=== PATIENT | male | born 1960 | race Caucasian/White ===

== ENCOUNTER 2023-11-07 09:50 | Outpatient (CLI) | payer BC ==
[2023-11-07 10:56] LABS: Hemoglobin 16.7 g/dL (13.5-17.5); Mean Corpuscular HGB CONC 32.7 g/dL (32.0-36.0); Mean Corpuscular Hemoglobin 29.6 pg (27.0-33.0); Mean Corpuscular Volume 90.3 fL (81.2-95.1); Platelet Count 244 10x3/uL (150-450); RBC Distribution Width 13.3 % (11.5-14.5); Red Blood Cell (RBC) Count 5.65 10x6/uL (4.32-5.72)
[2023-11-07 11:15] LABS: INR-International Normal Ratio 1.1; PTT 26.6 sec (22.0-33.0); Prothrombin Time 11.9 sec (9.5-12.1)
[2023-11-07 11:37] LABS: ALT (SGPT) 44 U/L (8-55); AST (SGOT) 31 U/L (5-34); Albumin 4.4 g/dL (3.4-4.8); Alkaline Phosphatase 55 U/L (40-110); Anion Gap 13 mmol/L (10-20); BUN (Urea Nitrogen) 16 mg/dL (8.4-25.7); Bilirubin, Direct 0.2 mg/dL (0.1-0.3); Bilirubin, Total 0.6 mg/dL (0.2-1.2); Calc. Creatinine Clearance 0 mL/min (70-130); Calcium 9.8 mg/dL (7.8-10.44); Carbon Dioxide 23 mmol/L (23-31); Chloride 105 mmol/L (98-107); Estimated GFR 43; Glucose 135 mg/dL (80-115); Potassium 4.3 mmol/L (3.5-5.1); Protein, Total 7.3 g/dL (5.8-8.1); Sodium 137 mmol/L (136-145)
== END 2023-11-07 09:51 | disposition home or self-care (01) ==
LOC: CSHLAB 09:50
PROVIDERS: ATTEND Surgery
DX: Z01.818 Encounter for other preprocedural examination (principal); K43.9 Ventral hernia without obstruction or gangrene
CPT/HCPCS: 80048; 80076; 85027; 85610; 85730; 93005; 93010

== ENCOUNTER 2023-11-10 09:48 | Day surgery (SDC) | payer BC ==
[2023-11-07 10:30] VITALS: BMI 27.8
[2023-11-10] MEDS ORDERED: PROPOFOL 20 ML ONE ×2 (11:20→14:33)
[2023-11-10] MEDS ORDERED: fentaNYL 50 mcg/mL 1 mL Vial ONE ×4 (12:13→15:47)
[2023-11-10] MEDS ORDERED: Bupivacaine HCl 0.5%/Epinephrine 1:200,000/PF 30 ml Vial ONE (12:13)
[2023-11-10] MEDS ORDERED: CEFAZOLIN 2 GM VIAL ONE (12:27)
[2023-11-10] MEDS ORDERED: AFRIN NASAL MIST 15 ML BOT ONE (12:49)
[2023-11-10] MEDS ORDERED: Dexamethasone 4 mg/ml Vial ONE (12:52)
[2023-11-10] MEDS ORDERED: Lidocaine 1% PF 5 ML VIAL ONE (12:52)
[2023-11-10] MEDS ORDERED: Ondansetron PF 4 MG/2 ML Vial ONE (12:56)
[2023-11-10] MEDS ORDERED: SUGAMMADEX SODIUM 200 MG/2 ML VIAL ONE (14:35)
[2023-11-10] MEDS ORDERED: HYDROmorphone 0.5 MG/0.5 ML SYRINGE ONE (15:57)
[2023-11-10] MEDS ORDERED: HYDROcodone/Acetaminophen 5/325 mg Tablet ONE (16:12)
== END 2023-11-10 17:55 | disposition home or self-care (01) ==
LOC: CSHSDC 09:48
PROVIDERS: ATTEND Surgery
DX: K43.0 Incisional hernia with obstruction, without gangrene (principal); K43.9 Ventral hernia without obstruction or gangrene; I10 Essential (primary) hypertension; J45.909 Unspecified asthma, uncomplicated; E78.00 Pure hypercholesterolemia, unspecified; E03.9 Hypothyroidism, unspecified; Z98.890 Other specified postprocedural states; Z87.891 Personal history of nicotine dependence
CPT/HCPCS: 87070; 87102; 87205; A6258; C1781; J1100; J1170; J2405; J2704; J3010